=== PATIENT | male | born 1955 | race Caucasian/White ===

== ENCOUNTER → 2019-02-20 | Outpatient (CLI) | payer SELFPAY ==
--- NOTE | 2019-02-20 15:53 | PCVCIMAG ---
APPROVED REPORT Study performed: 02/20/2019 15:01:20 Exam: Stress Echocardiogram Indication: Dyspnea , Hypertension, obesity, edema Patient Location: Echo lab Stress Nurse: Hannah Gonzalez RN Status: routine Ht: 6 ft 2 in HR: 90 bpm BP: 128/70 mmHg Rhythm: NSR Procedure The patient underwent an Exercise Stress Test using the Stanley Protocol. Blood pressure, heart rate, and EKG were monitored. An Echocardiogram was performed by costume technician in four stages in quad fashion. At peak stress, four selected images were obtained and placed side by side with resting images for comparison. Stress Test Details Stress Test: Exercise stress testing was performed using a Stanley protocol. HR Resting HR: 90 bpmMax Heart Rate (APMHR): 159 bpm Max HR Achieved: 144 bpmTarget HR (85% APMHR): 135 bpm % of APMHR: 90 Recovery HR: 113 bpm HR response to stress: Normal HR response to stress BP Resting BP: 128/70 mmHg Max BP: 168/80 mmHg Recovery BP: 150/80 mmHg BP response to stress: Normal blood pressure response to stress. ECG Resting ECG: Sinus Rhythm Stress ECG: Sinus Rhythm ST Change: Non-ischemic Arrhythmia: None Recovery ECG: Sinus Rhythm Recovery ST Change: Normal Recovery Arrhythmia: None Clinical Reason for Termination: Maximal effort Stress Symptoms: Dyspnea Exercise duration: 7 min 41 sec Highest Stage Achieved: Stage 3: 3.4 mph at 14% grade. Exercise capacity: 10.1 METs Overall Exercise Capacity for Age: Normal Scale: Sedentary Angina Score: None Pre-Stress Echo The resting Echocardiogram showed normal left ventricular contractility with an estimated Ejection Fraction of about 50-55%. Normal wall motion in all segments on baseline images. Post-Stress Echo The stress Echocardiogram showed normal left ventricular contractility with an estimated Ejection Fraction of about 60-65%. Normal augmentation of wall motion in all segments on post stress images. Clinical No clinical or ECG evidence for ischemia. Conclusion Clinical Response: Non-ischemic Exercise Capacity: Average Stress ECG Response: Non-ischemic Stress Echo Images: Non-ischemic The left ventricle is normal in size and wall thickness in both the rest and stress images. Other Information Study Quality: Adequate <Conclusion> The left ventricle is normal in size and wall thickness in both the rest and stress images.
== END | disposition home or self-care (01) ==
LOC: PCVCIMAG 15:30
PROVIDERS: ATTEND Internal Medicine Cardiovascular Disease
DX: I10 Essential (primary) hypertension (principal); R06.09 Other forms of dyspnea; R60.0 Localized edema; E66.9 Obesity, unspecified
CPT/HCPCS: 93325; 93351